=== PATIENT | male | born 1940 | race Caucasian/White ===

== ENCOUNTER 2017-08-31 18:48 | Observation (INO) | payer OTHER ==
[2017-08-31] MEDS ORDERED: Aspirin Low Dose CHEW TAB* 81 MG PO ONE (21:09)
--- NOTE | 2017-08-31 21:30 | RAD ---
INDICATION: Chest pain COMPARISON: May 29, 2016 TECHNIQUE: An AP portable view obtained at 2122 hours is submitted. FINDINGS: Bones/Soft Tissues: There are no acute bony findings. Cardiomediastinal: The cardiomediastinal silhouette is normal. Lungs: There are no infiltrates. Pleura: There are no pleural effusions. Other: None IMPRESSION: NO ACTIVE DISEASE
[2017-08-31 21:53] LABS: Hematocrit 45 % (42-52); Hemoglobin 15.4 g/dl (14.0-18.0); Mean Corpuscular HGB Conc 34 g/dl (31-36); Mean Corpuscular Hemoglobin 35 pg (27-31); Mean Corpuscular Volume 102 fL (80-94); Mean Platelet Volume 8 um3 (7.4-10.4); Red Blood Count 4.43 10^6/ul (4.0-5.4); Red Cell Distribution Width 13 % (10.5-15); White Blood Count 7.3 10^3/ul (3.5-10.8)
[2017-08-31 22:11] LABS: BUN/Creatinine Ratio 18.9 (8-20); Calcium 9.4 mg/dL (8.6-10.3); EGFR African American 83.1 (>60); EGFR Non-African American 64.6 (>60); Globulin 3.6 g/dL (2-4); Magnesium 2.3 mg/dL (1.9-2.7); Potassium 4.4 mmol/L (3.5-5.0); Total Bilirubin 0.4 mg/dL (0.2-1.0); Total Protein 7.6 g/dL (6.4-8.9)
[2017-08-31 22:13] LABS: Troponin I 0.01 ng/mL (<0.04)
[2017-08-31] MEDS ORDERED: Aspirin Low Dose CHEW TAB* 81 MG ONE (22:27)
[2017-08-31 22:37] LABS: TSH (Thyroid Stimulating Horm) 4.25 mcIU/mL (0.34-5.60)
--- NOTE | 2017-09-01 00:58 | ED ---
Shahida Christensen Thomas, scribed for Hermilo Francisco on 08/31/17 at 2108 . HPI Chest Pain - HPI Summary HPI Summary: The pt is a 76 y/o M presenting to the ED c/o chest pain that began three days ago. The pain is described as squeezing. The pain comes and goes. The pain is rated 2/10. The pain is aggravated by the supine position. The pain is worst at night. It is alleviated by nothing. 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 Pt denies N/V, dizziness, SOB, leg swelling, and abd pain. His last stress test was about a year ago. PMHx includes Schatzki ring that has been evaluated by a color control supervisor. He is on atorvastatin. The patient is accompanied by his . - History of Current Complaint Chief Complaint: EDChestPainROMI Time Seen by Provider: 08/31/17 20:45 Hx Obtained From: Patient, Family/Penology Professor - is present Onset/Duration: Started Days Ago - onset of pain three days ago, Still Present Current Severity: Mild Pain Intensity: 2 Pain Scale Used: 0-10 Numeric Chest Pain Radiates: No Character: Pressure/Squeezing Aggravating Factor(s): Other: - Supine position Alleviating Factor(s): Nothing Associated Signs and Symptoms: Positive: Chest Pain, Cough. Negative: Dizziness , Shortness of Breath, Nausea, Abdominal Pain, Vomiting, Other: - NEGATIVE: leg swelling - Allergy/Home Medications Allergies/Adverse Reactions: Allergies Allergy/AdvReac Type Severity Reaction Status Date / Time No Known Allergies Allergy Verified 08/31/17 19:13 PMH/Surg Hx/FS Hx/Imm Hx Previously Healthy: No Cardiovascular History: Reports: Hx Angina, Hx Hypercholesterolemia, Hx Hypertension, Other Cardiovascular Problems/Disorders - HIGH CHOLESTEROL Respiratory History: Reports: Hx Sleep Apnea - HX OF History: Reports: Other Problems/Disorders - BPH Sensory History: Reports: Hx Cataracts - BILATERAL, Hx Contacts or Glasses - GLASSES, Hx Hearing Aid Opthamlomology History: Reports: Hx Cataracts - BILATERAL, Hx Contacts or Glasses - GLASSES Neurological History: Reports: Hx Migraine - MONTHLY- EXCEDRINE - Surgical History Surgery Procedure, Year, and Place: 1996-S[place]ENECTOMY. [place] [facility] [place] Anesthesia Reactions: No Infectious Disease History: No Infectious Disease History: Denies: Traveled Outside the [place] in Last 30 Days - Family History Known Family History: Positive: Cardiac Disease - Social History Alcohol Use: Daily Alcohol Amount: 1 BEER EVERY OTHER DAY Substance Use Type: Reports: None Smoking Status (MU): Never Smoked Tobacco Have You Smoked in the Last Year: No Review of Systems Negative: Fever Positive: Chest Pain Positive: Cough. Negative: Shortness Of Breath Negative: Abdominal Pain, Vomiting, Nausea Negative: Other - NEGATIVE: leg swelling Neurological: Other - NEGATIVE: dizziness All Other Systems Reviewed And Are Negative: Yes Physical Exam - Summary Physical Exam Summary: Appearance: Well appearing, no pain distress Skin: warm, dry, reflects adequate perfusion Head/face: normal Eyes: EOMI, CYNTHIA ENT: normal Neck: supple, nontender Respiratory: CTA, breath sounds present Cardiovascular: RRR, pulses symmetrical Abdomen: nontender, soft Bowel: present Musculoskeletal: normal, strength/ROM intact Neuro: normal, sensory motor intact, A&Ox3 Triage Information Reviewed: Yes Vital Signs On Initial Exam: Initial Vitals Temp Pulse Resp BP Pulse Ox 98.5 F 69 18 151/84 98 08/31/17 19:12 08/31/17 19:12 08/31/17 19:12 08/31/17 19:12 08/31/17 19:12 Vital Signs Reviewed: Yes - Tino Coma Scale Coma Scale Total: 15 Diagnostics - Vital Signs Vital Signs Temp Pulse Resp BP Pulse Ox 08/31/17 19:12 98.5 F 69 18 151/84 98 - Laboratory Lab Results: Lab Results 08/31/17 08/31/17 08/31/17 Range/Units 21:38 21:38 21:38 WBC 7.3 (3.5-10.8) 10^3/ul RBC 4.43 (4.0-5.4) 10^6/ul Hgb 15.4 (14.0-18.0) g/dl Hct 45 (42-52) % MCV 102 H (80-94) fL MCH 35 H (27-31) pg MCHC 34 (31-36) g/dl RDW 13 (10.5-15) % Plt Count 215 (150-450) 10^3/ul MPV 8 (7.4-10.4) um3 Neut % (Auto) 37.5 L (38-83) % Lymph % (Auto) 38.4 (25-47) % Robeson % (Auto) 19.2 H (1-9) % Eos % (Auto) 4.1 (0-6) % Baso % (Auto) 0.8 (0-2) % Absolute Neuts (auto) 2.7 (1.5-7.7) 10^3/ul Absolute Lymphs (auto) 2.8 (1.0-4.8) 10^3/ul Absolute Monos (auto) 1.4 H (0-0.8) 10^3/ul Absolute Eos (auto) 0.3 (0-0.6) 10^3/ul Absolute Basos (auto) 0.1 (0-0.2) 10^3/ul Absolute Nucleated RBC 0 10^3/ul Nucleated RBC % 0 INR (Anticoag Therapy) 0.93 (0.89-1.11) APTT 35.3 (26.0-36.3) seconds D-Dimer, Quantitative < 200 (Less Than 230) ng/mL Sodium (133-145) mmol/L Potassium (3.5-5.0) mmol/L Chloride (101-111) mmol/L Carbon Dioxide (22-32) mmol/L Anion Gap (2-11) mmol/L BUN (6-24) mg/dL Creatinine (0.67-1.17) mg/dL Est GFR ( Amer) (>60) Est GFR (Non-Af Amer) (>60) BUN/Creatinine Ratio (8-20) Glucose (70-100) mg/dL Lactic Acid (0.5-2.0) mmol/L Calcium (8.6-10.3) mg/dL Magnesium (1.9-2.7) mg/dL Total Bilirubin (0.2-1.0) mg/dL AST (13-39) U/L ALT (7-52) U/L Alkaline Phosphatase (34-104) U/L Total Creatine Kinase (10-223) U/L CK-MB (CK-2) (0.6-6.3) ng/mL Troponin I (<0.04) ng/mL B-Natriuretic Peptide 19 ( - 100) pg/mL Total Protein (6.4-8.9) g/dL Albumin (3.2-5.2) g/dL Globulin (2-4) g/dL Albumin/Globulin Ratio (1-3) TSH (0.34-5.60) mcIU/mL 08/31/17 08/31/17 Range/Units 21:38 21:38 WBC (3.5-10.8) 10^3/ul RBC (4.0-5.4) 10^6/ul Hgb (14.0-18.0) g/dl Hct (42-52) % MCV (80-94) fL MCH (27-31) pg MCHC (31-36) g/dl RDW (10.5-15) % Plt Count (150-450) 10^3/ul MPV (7.4-10.4) um3 Neut % (Auto) (38-83) % Lymph % (Auto) (25-47) % Robeson % (Auto) (1-9) % Eos % (Auto) (0-6) % Baso % (Auto) (0-2) % Absolute Neuts (auto) (1.5-7.7) 10^3/ul Absolute Lymphs (auto) (1.0-4.8) 10^3/ul Absolute Monos (auto) (0-0.8) 10^3/ul Absolute Eos (auto) (0-0.6) 10^3/ul Absolute Basos (auto) (0-0.2) 10^3/ul Absolute Nucleated RBC 10^3/ul Nucleated RBC % INR (Anticoag Therapy) (0.89-1.11) APTT (26.0-36.3) seconds D-Dimer, Quantitative (Less Than 230) ng/mL Sodium 137 (133-145) mmol/L Potassium 4.4 (3.5-5.0) mmol/L Chloride 103 (101-111) mmol/L Carbon Dioxide 30 (22-32) mmol/L Anion Gap 4 (2-11) mmol/L BUN 21 (6-24) mg/dL Creatinine 1.11 (0.67-1.17) mg/dL Est GFR ( Amer) 83.1 (>60) Est GFR (Non-Af Amer) 64.6 (>60) BUN/Creatinine Ratio 18.9 (8-20) Glucose 95 (70-100) mg/dL Lactic Acid 0.8 (0.5-2.0) mmol/L Calcium 9.4 (8.6-10.3) mg/dL Magnesium 2.3 (1.9-2.7) mg/dL Total Bilirubin 0.40 (0.2-1.0) mg/dL AST 28 (13-39) U/L ALT 21 (7-52) U/L Alkaline Phosphatase 64 (34-104) U/L Total Creatine Kinase 123 (10-223) U/L CK-MB (CK-2) 3.7 (0.6-6.3) ng/mL Troponin I 0.01 (<0.04) ng/mL B-Natriuretic Peptide ( - 100) pg/mL Total Protein 7.6 (6.4-8.9) g/dL Albumin 4.0 (3.2-5.2) g/dL Globulin 3.6 (2-4) g/dL Albumin/Globulin Ratio 1.1 (1-3) TSH 4.25 (0.34-5.60) mcIU/mL Result Diagrams: 08/31/17 21:38 08/31/17 21:38 Lab Statement: Any lab studies that have been ordered have been reviewed, and results considered in the medical decision making process. - Radiology CXR Xray Interpretation: No Acute Changes - No active disease. ED physician has reviewed this report and agrees. Radiology Interpretation Completed By: Radiologist - EKG 18:54 Cardiac Rate: NL - 63 BPM EKG Rhythm: Sinus Rhythm EKG Interpretation: No acute changes Chest Pain Course/Dx - Course Assessment/Plan: The pt is a 76 y/o M presenting to the ED c/o chest pain that began three days ago as well as a cough. Bloodwork, EKG, and CXR were obtained. The patient was admitted by Dr. Panchal for repeat labs and cardiology consultation in the AM. - Chest Pain Differential Diagnosis/HQI/PQRI: Acute TN, ACS, Angina, CHF, Chest Wall, Lower Respiratory Infection - Diagnoses Provider Diagnoses: Chest pain, rule out acute myocardial infarction - Provider Notifications Discussed Care Of Patient With: Seth Panchal Time Discussed With Above Provider: 22:31 Instructed by Provider To: Other - I consulted with Dr. Panchal, boiling house hand , who [place] [facility] [place]charge - Discharge Plan Condition: Fair Disposition: ADMITTED TO [facility] documentation as recorded by the Shahida corcoran Thomas accurately reflects the service I personally performed and the decisions made by , Hermilo Francisco.
--- NOTE | 2017-09-01 01:10 | HP ---
CC: Dr. Mao* [facility] MEDICINE HISTORY AND PHYSICAL: DATE OF ADMISSION: 08/31/17 PRIMARY CARE PHYSICIAN: Dr. Mao. ATTENDING PHYSICIAN: Dr. Seth Panchal* (dictation provided by Rocio Rayo NP). CHIEF COMPLAINT: Chest pain. HISTORY OF PRESENT ILLNESS: Mr. Simons is a 76-year-old male with past medical history of hyperlipidemia and Schatzki's ring, who presents to the hospital with concern for chest pain. Mr. Simons states that he has had ongoing chest discomfort since Thursday. He reports it is constant, though fluctuating in intensity. He states that it is worse when he lies flat and better when he gets up and moves around. He states that it ranges in intensity from about 2 to 1. He states that on Thursday night, he began to feel like he was having a cold with congestion and mild cough. He has had no fever. He confirms a history of having stress test back in 2015, which was normal. In the emergency room, Mr. Simons had a troponin, which was 0.01 and EKG which shows sinus rhythm and no evidence of ischemia. The remainder of his workup was unremarkable including a chest x-ray that was negative and a D-dimer that was less than 200. PAST MEDICAL HISTORY: 1. Hyperlipidemia. 2. History of Schatzki's ring. 3. BPH. MEDICATIONS: Outpatient are: 1. Tadalafil 5 mg p.o. at bedtime p.r.n. 2. Silodosin 8 mg p.o. daily. 3. Omeprazole 40 mg p.o. daily. 4. Finasteride 5 mg p.o. daily. 5. Atorvastatin 10 mg p.o. daily. 6. Aspirin 81 mg p.o. daily. ALLERGIES: No known drug allergies. FAMILY HISTORY: The patient reports his father had a CABG, but at age 100 , mother at age 91. SOCIAL HISTORY: No report of tobacco or drug use. Report of occasional alcohol use. REVIEW OF SYSTEMS: A 14-point review of systems was completed with Mr. Simons and all those not mentioned above were negative. PHYSICAL EXAMINATION GENERAL: Mr. Simons is lying in the bed. He is in no acute distress. VITAL SIGNS: Temperature 98.5, pulse rate 69, respiratory rate 18, O2 saturation 98% on room air, blood pressure 151/84. LUNGS: Clear to auscultation bilaterally with no accessory muscle use and good aeration. HEART: S1, S2. No murmur, rub, or gallop and regular. ABDOMEN: Soft, nontender with bowel sounds positive x4. EXTREMITIES: No cyanosis or edema. NEUROLOGIC: He is alert and he is oriented x3, moves all extremities equally. There is no facial asymmetry or focal weakness. Extraocular movements are intact. SKIN: Intact. DIAGNOSTIC STUDIES/LAB DATA: WBC is 7.3, hemoglobin 15.4, hematocrit 45, platelet count 215. INR is 0.93. Sodium 137, potassium 4.4, chloride 103, serum bicarbonate 30, BUN 21, creatinine 1.11, glucose 95. Chest x-ray shows no acute process. EKG shows sinus rhythm and no evidence of ischemia. ASSESSMENT: Mr. Simons is a 76-year-old male with a past medical history of hyperlipidemia, who presents today to the hospital with concern for chest pain that is worse with lying down flat and better with movement. Our plans are for observation in the hospital for the followin. Chest pain: Given the ongoing nature of his chest pain and his history of hyperlipidemia and age, plan to monitor overnight in the hospital with repeat troponins x2. He will go on for a nuclear exercise stress test tomorrow. 2. DVT prophylaxis with heparin subcu. 3. Hyperlipidemia. Continue atorvastatin. 4. Disposition to telemetry floor. TIME SPENT: Approximately 45 minutes were spent on the admission of this patient, more than half the time was spent with the patient at the bedside reviewing the events leading up to this hospitalization, performing the physical examination, and review of my plan of care. ROCIO RAYO NP [id number]/[facility] #: [id number] [employer]
[2017-09-01] MEDS ORDERED: Heparin VIAL(*) 5000 UNITS/ML VIAL (FIVE THOUSAND) SUBCUT SCH (06:00)
[2017-09-01 08:48] VITALS: BP 128/71
[2017-09-01] MEDS ORDERED: Aspirin EC Low Dose* 81 MG TAB.EC PO SCH (09:00)
[2017-09-01] MEDS ORDERED: Finasteride TAB* 5 MG PO SCH (09:00)
[2017-09-01] MEDS ORDERED: Atorvastatin* 10 MG TAB PO SCH (09:00)
[2017-09-01] MEDS ORDERED: Omeprazole CAP* 20 MG PO SCH (09:00)
[2017-09-01] MEDS ORDERED: Silodosin(NF) 8 MG CAP PO SCH (09:00)
--- NOTE | 2017-09-01 10:41 | RAD ---
Edited for charges. HISTORY: Chest pain COMPARISONS: June 27, 2016 TECHNIQUE: A 1 day stress/rest myocardial perfusion study was performed, with exercise stress. The exercise portion was performed using the Flash protocol, for a total METs of 10.1. The stress portion was monitored by Dr. Lord. Gated SPECT imaging was performed, with CT-based attenuation correction DOSE: Stress: Technetium 99m tetrofosmin, 25.14 millicuries, injected at 9:15 AM on September 01, 2017 Rest: Technetium 99m tetrofosmin, 10.1 millicuries, injected at 6:53 AM on September 01, 2017 Pharmacologic agent: None FINDINGS: CARDIAC MONITORING: Peak heart rate of 152 bpm, 105% of predicted EF: 75 % TID: 0.95 MOTION: Normal motion, with normal wall thickening. PERFUSION: There is a small focus of reversible hypoperfusion along the distal lateral wall towards the apex. The reversible septal defect on the attenuation corrected images is felt to represent artifact. OTHER: None IMPRESSION: SMALL FOCUS OF REVERSIBLE HYPOPERFUSION ALONG THE DISTAL LATERAL WALL TOWARDS THE APEX SUGGESTIVE OF A SMALL AREA OF ISCHEMIA. ASSESSMENT: LOW RISK. Based on imaging criteria from ACC/AHA 2002. Guideline Update for the Management of Patient's with Chronic Stable Angina, table 23. Noninvasive Risk Stratification. CPT II Codes: 3570F MTDD
--- NOTE | 2017-09-02 11:04 | DS ---
DISCHARGE SUMMARY: DATE OF ADMISSION: 08/31/17 DATE OF DISCHARGE: 09/01/17 PRIMARY CARE PHYSICIAN: Dr. aMo. MY ATTENDING PHYSICIAN WHILE IN THE HOSPITAL: Dr. Seth Panchal* (dictated by COURTNEY Gibbons). PRIMARY DISCHARGE DIAGNOSES: Chest pain. SECONDARY DISCHARGE DIAGNOSES: 1. Hyperlipidemia. 2. Schatzki's ring. 3. Benign prostatic hyperplasia. STUDIES DONE WHILE IN THE HOSPITAL: Chest x-ray from 08/31/17 read as no active disease. EKG from 08/31/17 shows normal sinus rhythm, early repolarization in V2 and V3, normal axis, no ST-segment changes, no abnormalities. Nuclear medicine scan from 09/01/17 read as there is a small focus of reversible hypoperfusion along the distal lateral wall towards the apex, reversible septal defect on the attenuation-corrected images failed to represent artifact. Assessment: Low risk. MEDICATIONS AT DISCHARGE: 1. Aspirin 81 mg p.o. daily. 2. Proscar 5 mg p.o. daily. 3. Cialis 5 mg p.o. at bedtime as needed. 4. Lipitor 10 mg p.o. daily. 5. Omeprazole 40 mg p.o. daily. HOSPITAL COURSE: This is a brief summary of the patient's presentation. For more details, please see history and physical by Rocio Rayo NP, on 08/31/17. In brief, the patient is a 76-year-old male with past medical history significant for hyperlipidemia, Schatzki's ring, BPH, presenting with possible concern for chest pain since Thursday with constant fluctuating intensity, but with a maximum of 2/10. The patient had a stress test in 2015, which was normal. The patient's troponin and EKG were unremarkable. The patient's D- dimer was negative. The patient was admitted for a cardiac stress test. The patient had no events overnight and his chest pain resolved overnight without intervention, but recurred in the morning of 09/01/17 at about 1/10. The patient only exercised for 8 minutes during the stress test without any increase in his chest pain. The patient's stress test was read as above. The patient had to be to [place] by 2 in the afternoon and Cardiology said that his stress test would ultimately be followed up with his outpatient provider and was low risk for current WI. The patient was agreeable, was being discharged and in agreement with this plan. PHYSICAL EXAM ON DAY OF DISCHARGE: General: The patient is a 76-year-old male , who appears younger than stated age and sitting comfortably in the bed in no acute distress. Vital Signs: Temperature 97.4, heart rate 62, respiratory rate 18, oxygen saturation 96% on room air, blood pressure 128/71. HEENT: Head normocephalic, atraumatic. Sclerae anicteric. No conjunctival injection. Mucous membranes moist. Oropharynx: Nonerythematous. Neck: Supple, nontender. No lymphadenopathy. No carotid bruits auscultated. Cardiac: Regular rate and rhythm. No clicks, murmurs, gallops, or rubs. Pulses 2+ in the bilateral radial dorsalis pedis and posterior tibialis areas. No erythema. Respiratory: Clear to auscultation. No wheezes rales or rhonchi. Good air exchange bilaterally. Abdomen: Nondistended, nontender, bowel sounds present in all 4 quadrants. No hepatosplenomegaly. Genitourinary: Negative for suprapubic tenderness or CVA tenderness. Skin: Clean dry and intact. No rash. Neuro: Cranial nerves II through XII grossly intact. Normal gait. No focal deficits. Alert and oriented x3. Psychiatric: Pleasant and cooperative. DIAGNOSTIC STUDIES/LAB DATA: White blood cell count 7.3, hemoglobin 15.4, hematocrit 45, MCV 2, MCH 35, platelet count 215. INR 0.93, aPTT 35.3, D-dimer less than 200. Sodium 137, potassium 4.4, chloride 103, carbon dioxide 30, anion gap 4, BUN 21, creatinine 1.11, glucose 95, lactic acid 0.8, calcium 9.4, magnesium 2.3. Bilirubin 0.4, AST 28, ALT 21, alkaline phosphatase 64, creatine kinase 1.3, CK-MB is 3.7. Troponin I 0.01 x3. BNP 19. Total protein 7.6. TSH 4.25. DISCHARGE PLAN: The patient will be discharged with a low risk stress test to follow up with his outpatient primary care doctor for continued primary prevention of myocardial infarction. The patient should be eligible for hemoglobin A1c and lipid panel to further assess his risk, the patient is already on a statin. The patient should exercise for weight loss and avoid caffeine, but otherwise no activity or dietary restrictions. The patient should avoid fat as much as possible. The patient should follow up with primary care doctor within a week. TIME SPENT: Approximately 40 minutes was spent on this discharge, 20 minutes of which was spent [id number] with the patient obtaining history and physical and discussing treatment options. COURTNEY GIBBONS [id number]/[facility] #: [id number] [employer]
== END 2017-09-01 12:05 | disposition home or self-care (01) ==
LOC: ED 18:48 → MEDTELE 22:48
PROVIDERS: ADMIT Hospitalist; ATTEND Hospitalist
DX: R07.89 Other chest pain (principal); E78.5 Hyperlipidemia, unspecified; K22.2 Esophageal obstruction; N40.0 Benign prostatic hyperplasia without lower urinary tract symptoms; R05 Cough; Z79.899 Other long term (current) drug therapy
CPT/HCPCS: 36415; 71010; 78452; 80053; 82550; 82553; 83605; 83735; 83880; 84443; 84484; 85025; 85379; 85610; 85730; 87040; 93005; 93017; 96372; 99284; A9270-GY; A9502; G0378; J1644